=== PATIENT | male | born 1970 | race Caucasian/White ===

== ENCOUNTER 2022-05-06 16:40 | Inpatient (IN) ==
[2022-05-06] MEDS ORDERED: *HR* LORazepam 2 MG/ML VIAL IM ONE ×2 (17:10→17:15)
[2022-05-06] MEDS ORDERED: Haloperidol Lactate 5 MG/ML VIAL IM ONE ×2 (17:10→17:15)
[2022-05-06] MEDS ORDERED: Nicotine 14 MG PATCH.TD24 TD STA (17:19)
[2022-05-07] MEDS ORDERED: haloperidoL 5 MG TABLET PO ONE (12:27)
[2022-05-07] MEDS ORDERED: *HR* LORazepam 1 MG TABLET PO ONE (12:28)
[2022-05-07 17:59] LABS: Influenza A PCR Negative (Negative); Influenza B PCR Negative (Negative); Resp. Syncytial Virus PCR Negative (Negative)
[2022-05-07 18:05] LABS: SARS-CoV-2 by PCR (In House) Positive (Negative)
[2022-05-08] MEDS ORDERED: haloperidoL 5 MG TABLET PO ONE (07:39)
[2022-05-08] MEDS ORDERED: *HR* LORazepam 1 MG TABLET PO ONE (07:39)
[2022-05-08] MEDS ORDERED: Naloxone 0.4 MG/ML INJ IVP PRN (08:43)
[2022-05-08 12:28] LABS: Mean Platelet Volume 14.4 fL (9.4-12.4)
[2022-05-08 12:30] LABS: Basophils % 0.4 %; Eosinophils # 0.2 K/mcL (0.0-0.6); Eosinophils % 1.8 %; Hematocrit 39.9 % (37.5-50.1); Hemoglobin 13.1 g/dL (12.9-16.9); Immature Granulocytes % 0.7 % (0-4); Immature Platelets 30.7 % (1.1-6.1); Lymphocytes # 2.4 K/mcL (0.6-4.6); Lymphocytes % 23.8 %; Mean Corpuscular HGB Conc 32.8 g/dL (31.6-35.5); Mean Corpuscular Hemoglobin 29.3 pg (28.0-33.3); Mean Corpuscular Volume 89.3 fL (83.0-100.0); Monocytes # 0.9 K/mcL (0.0-1.3); Monocytes % 8.8 %; Neutrophils # 6.6 K/mcL (1.6-8.9); Platelet Count 174 K/mcL (140-400); Red Blood Count 4.47 M/mcL (4.19-5.50); Red Cell Distribution Width 13.9 % (11.5-14.5); Segmented Neutrophils % 64.5 %; White Blood Count 10.2 K/mcL (4.3-11.1)
[2022-05-08 13:01] LABS: BUN/Creatinine Ratio 11 (6-26); Blood Urea Nitrogen 10 mg/dL (6-20); Calcium 8.3 mg/dL (8.6-10.3); Carbon Dioxide 26 mEq/L (23-29); Chloride 101 mEq/L (98-107); Glucose 83 mg/dL (70-105); Osmolality,Calculated 274 (280-300); Potassium 4.5 mEq/L (3.5-5.1); Sodium 133 mEq/L (136-145); eGFR For African Americans > 60 (> 60); eGFR For Non-African Americans > 60 (> 60)
[2022-05-08] MEDS: Nicotine 7 MG PATCH.TD24 TD SCH (14:48)
[2022-05-08] MEDS ORDERED: Haloperidol Lactate 5 MG/ML VIAL IVP PRN (14:58)
[2022-05-08] MEDS: *HR* LORazepam 2 MG/ML VIAL IVP PRN (15:21)
[2022-05-08] MEDS ORDERED: Divalproex (24 HR) 500 MG TABLET PO SCH (21:00)
[2022-05-08] MEDS: Divalproex (24 HR) 500 MG TABLET PO SCH (21:48)
[2022-05-09] MEDS: *HR* LORazepam 2 MG/ML VIAL IVP PRN (03:22)
[2022-05-09] MEDS: Nicotine 7 MG PATCH.TD24 TD SCH (08:58)
[2022-05-09] MEDS: Thiamine (B-1) 100 MG TABLET PO SCH (08:58)
[2022-05-09] MEDS: Naltrexone HCl 50 MG TABLET PO SCH (08:58)
[2022-05-09] MEDS: Ziprasidone 80 MG CAPSULE PO SCH (08:58)
[2022-05-09] MEDS: Folic Acid 1 MG TABLET PO SCH (08:58)
[2022-05-09] MEDS: Divalproex (24 HR) 500 MG TABLET PO SCH (21:33)
[2022-05-10] MEDS: Nicotine 7 MG PATCH.TD24 TD SCH (08:56)
[2022-05-10] MEDS: Thiamine (B-1) 100 MG TABLET PO SCH (08:57)
[2022-05-10] MEDS: Folic Acid 1 MG TABLET PO SCH (08:57)
[2022-05-10] MEDS: Ziprasidone 80 MG CAPSULE PO SCH (08:57)
[2022-05-10] MEDS: Naltrexone HCl 50 MG TABLET PO SCH (08:57)
[2022-05-10] MEDS ORDERED: Ondansetron 4 MG/2 ML VIAL IVP PRN (14:02)
[2022-05-10] MEDS ORDERED: Acetaminophen 325 MG TABLET PO PRN (14:02)
[2022-05-10] MEDS: Divalproex (24 HR) 500 MG TABLET PO SCH (21:42)
[2022-05-11] MEDS: Nicotine 7 MG PATCH.TD24 TD SCH (10:06)
[2022-05-11] MEDS: Folic Acid 1 MG TABLET PO SCH (10:07)
[2022-05-11] MEDS: Naltrexone HCl 50 MG TABLET PO SCH (10:07)
[2022-05-11] MEDS: Thiamine (B-1) 100 MG TABLET PO SCH (10:07)
[2022-05-11] MEDS: Ziprasidone 80 MG CAPSULE PO SCH (10:07)
[2022-05-11] MEDS ORDERED: Divalproex (24 HR) 500 MG TABLET PO SCH (21:00)
[2022-05-12 05:44] VITALS: O2SAT 94
[2022-05-12] MEDS: Nicotine 7 MG PATCH.TD24 TD SCH (07:45)
[2022-05-12] MEDS: Naltrexone HCl 50 MG TABLET PO SCH (07:45)
[2022-05-12] MEDS: Ziprasidone 80 MG CAPSULE PO SCH (07:45)
[2022-05-12] MEDS: Thiamine (B-1) 100 MG TABLET PO SCH (07:45)
[2022-05-12] MEDS: Folic Acid 1 MG TABLET PO SCH (07:45)
[2022-05-12 08:53] VITALS: BP 112/78; PULSE 82; TEMP 98.3
== END 2022-05-12 13:42 | DRG 885 ==
LOC: 3BNU 16:40 → EMEROOARM 16:40 → SUATTDRO 05-08 09:24 → 3BNU 05-08 11:13
PROVIDERS: ADMIT Internal Medicine; ATTEND Internal Medicine